=== PATIENT | female | born 1950 | race Caucasian/White ===

== ENCOUNTER → 2016-09-25 | Outpatient (CLI) | payer BC ==
[~2016-09-25] MED LIST: ASCO100061 PO; ASPCH81X PO; CHOL100010 PO; CYAN10005 PO; DOCU100C31 PO; LSX20 PO; MAGN250T3 PO; POTA1TAB94 PO; PRAV20TA PO; PRLSR20 PO; PYRI100T4 PO
--- NOTE | 2016-09-25 15:55 | DIAGNOSTIC IMAGING REPORT ---
CT OF THE CHEST WITHOUT IV CONTRAST CLINICAL HISTORY: Solitary pulmonary nodule COMPARISON STUDY: 10/18/2015 CT DOSE: 557.57 mGy.cm TECHNIQUE: CT of the thorax was performed from the thoracic inlet to the lung bases. Images are reviewed in the axial, sagittal, and coronal planes. IV contrast was not administered for this examination. FINDINGS: Thyroid: Imaged portions of the thyroid gland are normal in appearance. Thoracic aorta: The thoracic aorta is normal in course and caliber, noting standard 3 vessel arch anatomy. Heart: There are minor coronary artery calcifications. Lungs and pleural spaces: There are no pleural effusions. There is no focal pulmonary consolidation. There is a 4 mm subpleural right middle lobe pulmonary nodule, as visualized in image #[id number]. There is a 4 mm right middle lobe pulmonary nodule as visualized on image #[id number]. There is a 3 mm right lower lobe point nodule as visualized in image #[id number].. Mediastinum: There is a lower right paratracheal lymph node measuring 9 mm in diameter. This is the upper limits of normal in size. This remain stable. Nelly: There is no evidence of pathologic hilar adenopathy given the limitations of a noncontrast study Axilla: Clear. Upper abdomen: Partially visualized upper abdominal viscera is within normal limits. Skeletal structures: There are no lytic or blastic osseous lesions. IMPRESSION: Essentially stable subcentimeter right lung pulmonary nodules. No evidence of pathologic adenopathy. Given the history of colon carcinoma, one additional 12 month follow-up is recommended. Please refer to below summary of Fleischner criteria recommendations for follow-up of incidental CT nodules (Navjot Tang, Guidelines for management of small pulmonary nodules detected on CT scans: A statement from the Fleischner Society, Radiology 237: [phone].) Low Risk Patient: Minimal or no smoking or other known risk factors for malignancy <=4 mm: No follow-up needed. >4-6 mm: Initial follow-up CT at 12 months; if unchanged, no further follow-up. >6-8 mm: Initial follow-up CT at 6-12 months then at 18-24 months if no change. >8 mm: Follow-up CT at \R\3, 9, 24 months, or PET and/or biopsy. High Risk Patient: History of smoking or other known risk factors <=4 mm: Follow-up at 12 months; if unchanged, no further follow-up. >4-6 mm: Initial follow-up CT at 6-12 months then at 18-24 months if no change. >6-8 mm: Initial follow-up CT at 3-6 months then at 9-12 and 24 months if no change. >8 mm: Same as low risk patient. Note: Nodule size measured as average of length and width. Ground glass or partly solid nodules may require longer follow-up to exclude indolent adenocarcinoma. Electronically signed by: Luis E Stacy M.D. 09/25/2016 3:53 PM Dictated Date/Time: 09/25/2016 3:45 PM
== END | disposition home or self-care (01) ==
LOC: C.CTS 15:33
PROVIDERS: ATTEND Internal Medicine
DX: R91.1 Solitary pulmonary nodule (principal)

== ENCOUNTER → 2017-01-19 | Outpatient (CLI) | payer BC ==
--- NOTE | 2017-01-19 15:41 | MAMMOGRAPHY REPORT ---
BILATERAL DIGITAL SCREENING MAMMOGRAM WITH CAD: 01/19/2017 CLINICAL HISTORY: Routine screening. Patient has no complaints. TECHNIQUE: Current study was also evaluated with a Computer Aided Detection (CAD) system. Bilatera l CC and MLO views were obtained. COMPARISON: Comparison is made to exams dated: 11/15/2015 mammogram, 09/21/2010 mammogram, 09/12/2010 mammogram, 08/18/2009 mammogram - [facility], 02/10/2009, and 02/03/2009. BREAST COMPOSITION: The tissue of both breasts is almost entirely fatty. FINDINGS: No suspicious masses, calcifications, or areas of architectural distortion are noted in e ither breast. There has been no significant interval change compared to prior exams. Scattered bilat eral benign-appearing calcifications are not significantly changed. Asymmetry posterior to the righ t nipple middle depth on the cc view appears similar to multiple prior exams including the 2009 exam , and is considered benign given long-term stability and is felt to represent normal overlapping fib roglandular tissue. IMPRESSION: ACR BI-RADS CATEGORY 2: BENIGN There is no mammographic evidence of malignancy. A 1 year screening mammogram is recommended. The p atient will receive written notification of the results. Approximately 10% of breast cancers are not detected with mammography. A negative mammographic repor t should not delay biopsy if a clinically suggestive mass is present. Meli Jay M.D. ah/:01/19/2017 13:56:08 Student Services Vice President: Virginia BURNHAM(Mine)(Jeffrey)(BD), [facility] letter sent: Normal 1/2 BI-RADS Code: ACR BI-RADS Category 2: Benign
== END | disposition home or self-care (01) ==
LOC: C.MAMM 10:10
PROVIDERS: ATTEND Internal Medicine
DX: Z12.31 Encounter for screening mammogram for malignant neoplasm of breast (principal)

== ENCOUNTER → 2017-11-10 | Outpatient (CLI) | payer OTHER ==
[2017-11-10 10:29] LABS: HEMATOCRIT 38.5 % (37-47); MEAN CELL VOLUME 88.7 fL (80-100); MEAN CORPUSCULAR HGB CONC 33.8 g/dl (32-36); MEAN PLATELET VOLUME 11.1 fL (7.4-10.4); PLATELET COUNT 297 K/uL (130-400); RED CELL DISTRIBUTION WIDTH CV 14.1 % (11.5-14.5); RED CELL DISTRIBUTION WIDTH SD 46.1 fL (36.4-46.3); WHITE BLOOD COUNT 4.76 K/uL (4.8-10.8)
[2017-11-10 10:38] LABS: ALBUMIN 3.7 gm/dl (3.4-5.0); ALT/SGPT 28 U/L (12-78); AST/SGOT 17 U/L (15-37); BLOOD UREA NITROGEN 22 mg/dl (7-18); CALCIUM 8.9 mg/dl (8.5-10.1); CARBON DIOXIDE 29 mmol/L (21-32); CREATININE 0.96 mg/dl (0.60-1.20); GLUCOSE 115 mg/dl (70-99); POTASSIUM 4.3 mmol/L (3.5-5.1); SODIUM 138 mmol/L (136-145)
[2017-11-10 10:39] LABS: ALKALINE PHOSPHATASE 70 U/L (45-117); CHOLESTEROL 183 mg/dl (0-200); LDL CHOLESTEROL CALCULATED 106 mg/dl; TOTAL PROTEIN 7.7 gm/dl (6.4-8.2)
== END | disposition home or self-care (01) ==
LOC: C.LAB 08:02
PROVIDERS: ATTEND Physician Assistant Medical
DX: K21.9 Gastro-esophageal reflux disease without esophagitis (principal); E78.5 Hyperlipidemia, unspecified

== ENCOUNTER → 2017-11-16 | Outpatient (CLI) | payer OTHER ==
[2017-11-16 12:27] LABS: HEMOGLOBIN A1C 6.3 % (4.5-5.6)
== END | disposition home or self-care (01) ==
LOC: C.LABBFT 08:05
PROVIDERS: ATTEND Physician Assistant Medical
DX: R73.09 Other abnormal glucose (principal)

== ENCOUNTER → 2017-11-20 | Outpatient (CLI) | payer OTHER ==
--- NOTE | 2017-11-20 15:18 | DIAGNOSTIC IMAGING REPORT ---
(CHEST) THORAX WITHOUT CT DOSE: 609.11 mGycm HISTORY: Nodule R91.1 Solitary pulmonary nodule1 year follow-up per the lung nod TECHNIQUE: Multiaxial CT images of the chest were performed without contrast. A dose lowering technique was utilized adhering to the principles of ALARA. COMPARISON: 09/25/2016 FINDINGS: Unchanged exam compared to the prior study. The small nodules previously described are unchanged in size or configuration. There is no evidence for new or interval finding. There is no significant mediastinal or hilar adenopathy. The osseous structures appear to be intact with no lytic or blastic process. IMPRESSION: Stable pulmonary nodularity. No new or interval finding. Repeat study is recommended in one year as surveillance. The above report was generated using voice recognition software. It may contain grammatical, syntax or spelling errors. Electronically signed by: Chaz Link M.D. 11/20/2017 3:17 PM Dictated Date/Time: 11/20/2017 3:07 PM
== END | disposition home or self-care (01) ==
LOC: C.CTS 14:51
PROVIDERS: ATTEND Internal Medicine
DX: R91.1 Solitary pulmonary nodule (principal)

== ENCOUNTER → 2018-01-16 | Outpatient (CLI) | payer OTHER ==
--- NOTE | 2018-01-16 11:52 | DIAGNOSTIC IMAGING REPORT ---
L-SPINE MIN 4 VIEWS ROUTINE HISTORY: Pain M54.5 Low back pain COMPARISON: 11/16/2014 FINDINGS: There is no fracture. No subluxation. Disc spaces are preserved. IMPRESSION: No fracture or subluxation within the lumbar spine. The above report was generated using voice recognition software. It may contain grammatical, syntax or spelling errors. Electronically signed by: Chaz Link M.D. 01/16/2018 11:50 AM Dictated Date/Time: 01/16/2018 11:47 AM
== END | disposition home or self-care (01) ==
LOC: C.RAD1850 10:58
PROVIDERS: ATTEND Internal Medicine
DX: M54.5 Low back pain (principal)

== ENCOUNTER → 2018-01-23 | Outpatient (CLI) | payer OTHER ==
--- NOTE | 2018-01-23 15:06 | MAMMOGRAPHY REPORT ---
BILATERAL DIGITAL SCREENING MAMMOGRAM TOMOSYNTHESIS WITH CAD: 01/23/2018 CLINICAL HISTORY: Routine screening. Patient has no complaints. TECHNIQUE: Breast tomosynthesis in addition to standard 2D mammography was performed. Current study was also evaluated with a Computer Aided Detection (CAD) system. COMPARISON: Comparison is made to exams dated: 01/19/2017 mammogram, 11/15/2015 mammogram, 09/21/2010 ortiz mogram, 09/21/2010 ultrasound, 09/12/2010 mammogram, and 08/18/2009 mammogram - [facility] nter. BREAST COMPOSITION: The tissue of both breasts is almost entirely fatty. FINDINGS: No suspicious masses, calcifications, or areas of architectural distortion are noted in ei ther breast. There has been no significant interval change compared to prior exams. IMPRESSION: ACR BI-RADS CATEGORY 1: NEGATIVE There is no mammographic evidence of malignancy. A 1 year screening mammogram is recommended. The pa tient will receive written notification of the results. Approximately 10% of breast cancers are not detected with mammography. A negative mammographic report should not delay biopsy if a clinically suggestive mass is present. Meli Jay M.D. ah/:01/23/2018 12:25:49 Outsole Molder: Kristi BURNHAM(R)(M), [facility] letter sent: Normal 1/2 BI-RADS Code: ACR BI-RADS Category 1: Negative
== END | disposition home or self-care (01) ==
LOC: C.MAMM 10:56
PROVIDERS: ATTEND Internal Medicine
DX: Z12.31 Encounter for screening mammogram for malignant neoplasm of breast (principal)

== ENCOUNTER 2018-04-20 06:50 | Emergency (ER) | payer OTHER ==
[~2018-04-20] VITALS: Ht 157.5 cm; Wt 97.0 kg
[~2018-04-20 06:50] MED LIST changes: -ASCO100061 PO; -CYAN10005 PO; -DOCU100C31 PO; -LSX20 PO; -MAGN250T3 PO; -PRLSR20 PO; -PYRI100T4 PO
[2018-04-20 06:59] VITALS: TEMP 36.5; Ht 157.5 cm; Wt 97.0 kg
[2018-04-20] MEDS ORDERED: ASPIRIN 81 MG CHEW PO STA (07:07)
[2018-04-20 07:18] VITALS: O2SAT 97
[2018-04-20 07:24] LABS: BASO % 0.2 %; BASO ABS # 0.02 K/uL (0-0.2); EOS % 2.8 %; EOS ABS # 0.25 K/uL (0-0.5); HEMATOCRIT 37.5 % (37-47); HEMOGLOBIN 12.5 g/dL (12.0-16.0); IG# 0.02 K/uL (0.00-0.02); LYMPH % 18.4 %; LYMPH ABS # 1.67 K/uL (1.2-3.4); MEAN CELL VOLUME 89.5 fL (80-100); MEAN CORPUSCULAR HEMOGLOBIN 29.8 pg (25-34); MEAN CORPUSCULAR HGB CONC 33.3 g/dl (32-36); MEAN PLATELET VOLUME 10.9 fL (7.4-10.4); MONO % 9.6 %; MONO ABS # 0.87 K/uL (0.11-0.59); NEUT % 68.8 %; NEUT ABS # 6.23 K/uL (1.4-6.5); PLATELET COUNT 303 K/uL (130-400); RED CELL DISTRIBUTION WIDTH CV 14.3 % (11.5-14.5); WHITE BLOOD COUNT 9.06 K/uL (4.8-10.8)
--- NOTE | 2018-04-20 07:32 | DIAGNOSTIC IMAGING REPORT ---
SINGLE VIEW CHEST CLINICAL HISTORY: Fever. Sepsis. FINDINGS: An AP, portable, upright chest radiograph is compared to study dated 11/10/2015 and correlated with chest CT dated 11/20/2017. The examination is degraded by portable technique and patient rotation. The heart is top normal for projection. The pulmonary vasculature is noncongested. Chronic interstitial thickening is similar to previous. There is mild bibasilar atelectasis. No airspace consolidation or large pleural effusion is identified. No pneumothorax is seen. The skeletal structures are osteopenic. The bony thorax is grossly intact. IMPRESSION: No acute cardiopulmonary abnormality. Electronically signed by: Mk Lewis M.D. 04/20/2018 7:30 AM Dictated Date/Time: 04/20/2018 7:29 AM
[2018-04-20 07:37] LABS: PTT PATIENT 24.2 SECONDS (21.0-31.0)
[2018-04-20 07:52] LABS: ALBUMIN 4.1 gm/dl (3.4-5.0); ALKALINE PHOSPHATASE 74 U/L (45-117); ALT/SGPT 31 U/L (12-78); AST/SGOT 21 U/L (15-37); BLOOD UREA NITROGEN 18 mg/dl (7-18); CALCIUM 9.1 mg/dl (8.5-10.1); CARBON DIOXIDE 28 mmol/L (21-32); CKMB 2.3 ng/ml (0.5-3.6); CREATININE 0.92 mg/dl (0.60-1.20); GLUCOSE 120 mg/dl (70-99); LIPASE 177 U/L (73-393); POTASSIUM 3.8 mmol/L (3.5-5.1); SODIUM 140 mmol/L (136-145); TOTAL PROTEIN 8.1 gm/dl (6.4-8.2)
--- NOTE | 2018-04-20 08:24 | EMERGENCY ROOM VISIT NOTE ---
History Report prepared by Arash: Kacy Mauricio Under the Supervision of: Dr. Jaime Powell D.O. First contact with patient: 07:03 Chief Complaint: CHEST PAIN Stated Complaint: CHEST PAINS History of Present Illness The patient is a 67 year old female who presents to the Emergency Room with complaints of constant chest pressure beginning at 0100 this morning. The patient states that she felt like "someone was sitting on her chest." She states that walking exacerbates her pain. The patient also reports having shortness of breath with this chest pain. The patient denies having a cough or recent illness. The patient states that she quit smoking 9 years ago. She reports a history of hyperlipidemia and acid reflux but states that she takes medications for it. Source of History: patient Onset: 0100 this morning Position: chest Quality: pressure Timing: constant Modifying Factors (Worsening): movement (walking) Associated Symptoms: + SOB, No cough Review of Systems See HPI for pertinent positives & negatives. A total of 10 systems reviewed and were otherwise negative. Past Medical & Surgical Medical Problems: (1) Esophageal Reflux (2) Hyperlipidemia Nec/Nos Family History Patient reports no known family medical history. Social History Smoking Status: Former Smoker Marital Status: Occupation Status: employed Current/Historical Medications Scheduled Ascorbic Acid (Ascorbic Acid), 1,000 MG PO QAM Cyanocobalamin (Vitamin B-12), 1,000 MCG PO QAM Docusate Sodium (Docusate Sodium), 100 MG PO HS Magnesium (Magnesium 250 mg), 2 TAB PO QAM Omeprazole (Prilosec), 20 MG PO QAM Pyridoxine (Vitamin B6), 100 MG PO QAM Scheduled PRN Furosemide (Furosemide), 20 MG PO QAM PRN for SWELLING Allergies Coded Allergies: Codeine (Verified Allergy, Unknown, SEVERE N/V, 04/20/18) Physical Exam Vital Signs Date Time Temp Pulse Resp B/P (MAP) Pulse Ox O2 Delivery O2 Flow Rate FiO2 04/20/18 07:18 97 Room Air 04/20/18 07:16 82 04/20/18 06:59 36.5 88 18 163/94 98 Room Air Physical Exam CONSTITUTIONAL/VITAL SIGNS: Reviewed / noted above. GENERAL: Non-toxic in appearance. INTEGUMENTARY: Warm, dry, and [place]. HEAD: Normocephalic. EYES: without scleral icterus or trauma. ENT/OROPHARYNX: clear and moist. LYMPHADENOPATHY/NECK: Is supple without lymphadenopathy or meningismus. RESPIRATORY: Lungs clear and equal. CARDIOVASCULAR: Regular rate and rhythm. GI/ABDOMEN: Soft and nontender. No organomegaly or pulsatile mass. No rebound or guarding. Normal bowel sounds. EXTREMITIES: Warm and well perfused. BACK: No CVA tenderness. NEUROLOGICAL: Intact without focal deficits. PSYCHIATRIC: normal affect. MUSCULOSKELETAL: Normally developed with good muscle tone. Medical Decision & Procedures ER Provider Diagnostic Interpretation: Radiology results as stated below per my review and radiologist interpretation: SINGLE VIEW CHEST CLINICAL HISTORY: Fever. Sepsis. FINDINGS: An AP, portable, upright chest radiograph is compared to study dated 11/10/2015 and correlated with chest CT dated 11/20/2017. The examination is degraded by portable technique and patient rotation. The heart is top normal for projection. The pulmonary vasculature is noncongested. Chronic interstitial thickening is similar to previous. There is mild bibasilar atelectasis. No airspace consolidation or large pleural effusion is identified. No pneumothorax is seen. The skeletal structures are osteopenic. The bony thorax is grossly intact. IMPRESSION: No acute cardiopulmonary abnormality. Electronically signed by: Mk Lewis M.D. 04/20/2018 7:30 AM Dictated Date/Time: 04/20/2018 7:29 AM Laboratory Results 04/20/18 07:15 Red Blood Count 4.19, Mean Corpuscular Volume 89.5, Mean Corpuscular Hemoglobin 29.8, Mean Corpuscular Hemoglobin Concent 33.3, Mean Platelet Volume 10.9, Neutrophils (%) (Auto) 68.8, Lymphocytes (%) (Auto) 18.4, Monocytes (%) (Auto) 9.6, Eosinophils (%) (Auto) 2.8, Basophils (%) (Auto) 0.2, Neutrophils # (Auto) 6.23, Lymphocytes # (Auto) 1.67, Monocytes # (Auto) 0.87, Eosinophils # (Auto) 0.25, Basophils # (Auto) 0.02 04/20/18 07:15 Test 04/20/18 07:15 White Blood Count 9.06 K/uL (4.8-10.8) Red Blood Count 4.19 M/uL (4.2-5.4) Hemoglobin 12.5 g/dL (12.0-16.0) Hematocrit 37.5 % (37-47) Mean Corpuscular Volume 89.5 fL (80-100) Mean Corpuscular Hemoglobin 29.8 pg (25-34) Mean Corpuscular Hemoglobin Concent 33.3 g/dl (32-36) Platelet Count 303 K/uL (130-400) Mean Platelet Volume 10.9 fL (7.4-10.4) Neutrophils (%) (Auto) 68.8 % Lymphocytes (%) (Auto) 18.4 % Monocytes (%) (Auto) 9.6 % Eosinophils (%) (Auto) 2.8 % Basophils (%) (Auto) 0.2 % Neutrophils # (Auto) 6.23 K/uL (1.4-6.5) Lymphocytes # (Auto) 1.67 K/uL (1.2-3.4) Monocytes # (Auto) 0.87 K/uL (0.11-0.59) Eosinophils # (Auto) 0.25 K/uL (0-0.5) Basophils # (Auto) 0.02 K/uL (0-0.2) RDW Standard Deviation 47.0 fL (36.4-46.3) RDW Coefficient of Variation 14.3 % (11.5-14.5) Immature Granulocyte % (Auto) 0.2 % Immature Granulocyte # (Auto) 0.02 K/uL (0.00-0.02) Prothrombin Time 10.0 SECONDS (9.0-12.0) Prothromb Time International Ratio 1.0 (0.9-1.1) Activated Partial Thromboplast Time 24.2 SECONDS (21.0-31.0) Partial Thromboplastin Ratio 0.9 Anion Gap 6.0 mmol/L (3-11) Est Creatinine Clear Calc Drug Dose 66.3 ml/min Estimated GFR () 75.7 Estimated GFR (Non- 65.3 BUN/Creatinine Ratio 19.7 (10-20) Calcium Level 9.1 mg/dl (8.5-10.1) Total Bilirubin 0.4 mg/dl (0.2-1) Direct Bilirubin 0.1 mg/dl (0-0.2) Aspartate Amino Transf (AST/SGOT) 21 U/L (15-37) Alanine Aminotransferase (ALT/SGPT) 31 U/L (12-78) Alkaline Phosphatase 74 U/L (45-117) Total Creatine Kinase 123 U/L (26-192) Creatine Kinase MB 2.3 ng/ml (0.5-3.6) Creatine Kinase MB Ratio 1.9 (0-3.0) Troponin I < 0.015 ng/ml (0-0.045) Total Protein 8.1 gm/dl (6.4-8.2) Albumin 4.1 gm/dl (3.4-5.0) Lipase 177 U/L (73-393) Thyroid Stimulating Hormone (TSH) 3.580 uIu/ml (0.300-4.500) Laboratory results as stated above per my review. Medications Administered Medications (Trade) Dose Ordered Sig/Antonella Route Start Time Stop Time Status Last Admin Dose Admin Aspirin (Aspirin Chew) 324 mg NOW STAT PO 04/20/18 07:07 04/20/18 07:08 DC 04/20/18 07:23 324 MG ECG Per My Interpretation Indication: chest pain Rate (beats per minute): 83 Rhythm: normal sinus Findings: no ectopy, other (no ST elevation) ED Course 0704: Previous medical records were reviewed. The patient was evaluated in room C1B. A complete history and physical examination was performed. 0707: Ordered Aspirin 324 mg PO. 0807: On reevaluation, the patient is resting. I discussed the results and findings with the patient. I also discussed admission with the patient but she states that she would prefer to go home. She verbalized agreement of the treatment plan. She was discharged home. Medical Decision the differential was considered includes acute myocardial infarction, acute coronary syndrome, myocarditis, pericarditis, pericardial effusions /tamponad, esophageal perforation, thoracic aortic dissection, pulmonary embolism, pneumonia, pneumothorax, pancreatitis, shingles, acute cholecystitis, perforated abdominal viscus. This is a 67-year-old female who presents to the ED with a chief complaint of chest discomfort. She states that she feels like something sitting on her chest. Started around today. Nothing seems to help her symptoms. She states that she felt a little short of breath. She denies any cough or recent illness. Walking in the emergency department seemed to worsen the pain slightly. The patient denies any recent similar symptoms. She has not had any recent exertional symptoms. Her vital signs reveal hypertension. She does report history of high cholesterol and takes medication for this. Her physical exam was normal. An EKG shows a normal sinus rhythm at a rate of 83. CBC and complete metabolic panel were normal, TSH was normal. Troponin was negative. Chest x-ray did not show acute process. The patient was treated with aspirin p.o. She was told the results of the test. She was recommended observation for further cardiac evaluation and stress testing but declined. She states that she will return if her symptoms worsen. She otherwise stated she will follow-up with Dr. Juan on Sunday. The patient was discharged, per her wishes. Again, she was offered admission/observation for further cardiac evaluation but declined. Medication Reconcilliation Current Medication List: was personally reviewed by me Blood Pressure Screening Patient's blood pressure: Elevated blood pressure Blood pressure disposition: Referred to PCP Impression Primary Impression: Substernal precordial chest pain Scribe Attestation The scribe's documentation has been prepared under my direction and personally reviewed by me in its entirety. I confirm that the note above accurately reflects all work, treatment, procedures, and medical decision making performed by me. Departure Information Dispostion Home / Self-Care Referrals Zak Juan M.D. (PCP) Forms Call Back Authorization, HOME CARE DOCUMENTATION FORM, IMPORTANT VISIT INFORMATION Patient Instructions My [facility] Additional Instructions Your test results today did not show a cause for your symptoms. A cardiac cause for your symptoms have not completely been ruled out. Return to the emergency department immediately for any worsening or new symptoms. Follow-up with your doctor on Sunday.
[2018-04-20 08:32] VITALS: BP 160/88; PULSE 81; O2SAT 95
[2018-04-20] MEDS ORDERED: MAGN250T3 PO (12:16)
[2018-04-20] MEDS ORDERED: LSX20 PO (12:16)
[2018-04-20] MEDS ORDERED: DOCU100C31 PO (12:16)
[2018-04-20] MEDS ORDERED: PRLSR20 PO (22:03)
[2018-04-20] MEDS ORDERED: CYAN10005 PO (22:15)
[2018-04-20] MEDS ORDERED: ASCO100061 PO (22:16)
[2018-04-20] MEDS ORDERED: PYRI100T4 PO (22:17)
== END 2018-04-20 08:33 | disposition home or self-care (01) ==
LOC: C.EDB 06:51 → C.EDC 08:33
DX: R07.2 Precordial pain (principal); Z87.891 Personal history of nicotine dependence; E78.5 Hyperlipidemia, unspecified; K21.9 Gastro-esophageal reflux disease without esophagitis; Z79.899 Other long term (current) drug therapy; Z88.5 Allergy status to narcotic agent; E78.00 Pure hypercholesterolemia, unspecified